=== PATIENT | female | born 1980 | race American Indian/Alaskan Native ===

== ENCOUNTER 2020-09-12 11:56 | Emergency (ER) | payer SELFPAY ==
--- NOTE | 2020-09-12 12:40 | Emergency Department Report ---
ED Lower Extremity HPI - General Chief Complaint: Extremity Injury, Lower Stated Complaint: KNEE/LEG PAIN Time Seen by Provider: 09/12/20 12:20 Source: patient Mode of arrival: Ambulatory Limitations: No Limitations - History of Present Illness Initial Comments: 40-year-old female with emerge department complaining of atraumatic right knee pain which has been off and on present worsening for the past 1 to 2months. States she is unable to get out able to get into her doctor as he is in the process of having a change reports no fever, chills, sweats reports no traumatic injury reports no numbness no tingling. Complaint: knee injury -: Gradual, month(s) Injury: Knee: Right Type of Injury: unknown Place: home Severity: mild, moderate Improves With: nothing Worsens With: nothing Associated Symptoms: able to partially bear weight - Related Data Previous Rx's Medication Instructions Recorded Last Taken Type Cyclobenzaprine [Flexeril] 10 mg PO TID PRN #20 tablet 07/23/16 Unknown Rx Ibuprofen [Motrin 800 MG tab] 800 mg PO Q8HR PRN #30 tablet 07/23/16 Unknown Rx Ketorolac [Toradol] 10 mg PO Q6H PRN #14 tablet 09/12/20 Unknown Rx Allergies Allergy/AdvReac Type Severity Reaction Status Date / Time No Known Allergies Allergy Verified 07/23/16 19:29 ED Review of Systems ROS: Stated complaint: KNEE/LEG PAIN Other details as noted in HPI Comment: All other systems reviewed and negative ED Past Medical Hx - Past Medical History Previous Medical History?: Yes Hx Hypertension: Yes - Surgical History Past Surgical History?: Yes Additional Surgical History: D&C 2002 - Social History Smoking Status: Never Smoker Substance Use Type: None - Medications Home Medications: Home Medications Medication Instructions Recorded Confirmed Last Taken Type Cyclobenzaprine [Flexeril] 10 mg PO TID PRN #20 tablet 07/23/16 Unknown Rx Ibuprofen [Motrin 800 MG tab] 800 mg PO Q8HR PRN #30 tablet 07/23/16 Unknown Rx Ketorolac [Toradol] 10 mg PO Q6H PRN #14 tablet 09/12/20 Unknown Rx ED Physical Exam - General Limitations: No Limitations General appearance: alert, in no apparent distress - Head Head exam: Present: atraumatic, normocephalic - Eye Eye exam: Present: normal appearance, PERRL, EOMI Pupils: Present: normal accommodation - ENT ENT exam: Present: normal exam, mucous membranes moist - Neck Neck exam: Present: normal inspection, full ROM - Respiratory Respiratory exam: Present: normal lung sounds bilaterally. Absent: respiratory distress, wheezes, rales, chest wall tenderness, accessory muscle use - Cardiovascular Cardiovascular Exam: Present: regular rate, normal rhythm. Absent: systolic murmur, diastolic murmur, rubs, gallop - GI/Abdominal GI/Abdominal exam: Present: soft, normal bowel sounds - Extremities Exam Extremities exam: Present: normal inspection - Expanded Lower Extremity Exam Right Knee exam: Present: tenderness. Absent: swelling, abrasion, pain w/ pronation/supination, posterior draw sign, pain/laxity with valgus, pain/laxity with varus Lower Leg exam: Present: normal inspection. Absent: tenderness, swelling, abrasion, ecchymosis, deformity, crepidus, palpable cord, Ramos's sign Ankle exam: Present: normal inspection Foot/Toe exam: Present: normal inspection Neuro vascular tendon exam: Present: no vascular compromise - Back Exam Back exam: Present: normal inspection. Absent: CVA tenderness (R), CVA tenderness (L) - Neurological Exam Neurological exam: Present: alert, oriented X3 - Psychiatric Psychiatric exam: Present: normal affect, normal mood - Skin Skin exam: Present: warm, dry, intact, normal color. Absent: rash Critical care attestation.: If time is entered above; I have spent that time in minutes in the direct care of this critically ill patient, excluding procedure time. ED Disposition Disposition: TO HOME OR SELFCARE Is pt being admited?: No Does the pt Need Aspirin: No Condition: Stable Instructions: Acute Knee Pain, Adult, Chronic Knee Pain, Adult, [id number]-ni-[id number], How to Use Cold Therapy, Mdlr-pc-Autv, Joint Pain, Ffdf-zi-Pril Prescriptions: Ketorolac [Toradol] 10 mg PO Q6H PRN #14 tablet PRN Reason: Pain Referrals: MILIND AGARWAL MD [Staff Physician] - 3-5 Days
[2020-09-12 13:39] VITALS: BP 133/78
== END 2020-09-12 13:39 | disposition home or self-care (01) ==
LOC: ED 11:56
DX: M25.561 Pain in right knee (principal); M79.604 Pain in right leg; I10 Essential (primary) hypertension; Z79.899 Other long term (current) drug therapy; Z98.890 Other specified postprocedural states
CPT/HCPCS: 99282

== ENCOUNTER 2021-01-29 20:13 | Emergency (ER) | payer OTHER ==
[2021-01-29 20:45] VITALS: BP 131/76
--- NOTE | 2021-01-29 22:20 | XRay Report ---
RIGHT KNEE 4 VIEW(S) INDICATION / CLINICAL INFORMATION: Fall with knee injury and pain COMPARISON: None available. FINDINGS: BONES / JOINT(S): Probable tiny avulsion fracture involving medial tibial spine. Mild tricompartmenta l degenerative arthrosis with small joint effusion SOFT TISSUES: No significant abnormality. ADDITIONAL FINDINGS: None. Signer Name: William Rutledge MD Signed: 01/29/2021 10:15 PM Workstation Name: [id number]
[2021-01-30] MEDS ORDERED: ONDANSETRON 4 MG ODT TAB PO ONE (00:57)
[2021-01-30] MEDS ORDERED: HYDROcodone/ACETAMINOPHEN 7.5-325MG TAB PO ONE (00:57)
[2021-01-30] MEDS ORDERED: IBUPROFEN 600 MG TAB PO ONE (00:57)
--- NOTE | 2021-01-30 01:46 | Emergency Department Report ---
ED Fall HPI - General Chief Complaint: Extremity Injury, Lower Stated Complaint: FALL/RT KNEE PAIN Source: patient Mode of arrival: Wheelchair - History of Present Illness Initial Comments: Patient is a 40-year-old -[place] female with a history of hypertension and osteoarthritis who presents to the ED with complaint of acute onset persistent severe right knee pain after she slipped on a wet floor at work and fell down landing on the right knee about 6 hours ago. Patient states that she is unable to bear weight on the right knee because of worsening pain. Patient denies head or neck injuries, dizziness, nausea, vomiting, chest pain, shortness of breath, back pain, hip pain, ankle pain, loss of consciousness, change in vision, numbness and tingling or weakness of upper and lower extremities bilaterally or neck pain. MD Complaint: fall, other (right knee pain) -: Sudden, hour(s) (6) Fall From: standing When Fall Occurred: 4-6 hours [employer] Fall Witnessed: yes, by living facility s Place Fall Occurred: work Loss of Consciousness: none Prolonged Down Time?: no Symptoms Prior to Fall: none Location: other (right knee) Location - Extremities: Right: Knee (right knee pain) Severity: severe Severity scale (0 -10): 7 Quality: sharp, aching Context: tripped/slipped Associated Symptoms: denies. denies: headache, neck pain, numbness, weakness, chest paint, shortness of breath, abdominal pain, hematuria, unable to walk, lightheaded, vertigo, confusion, other - Related Data Previous Rx's Medication Instructions Recorded Last Taken Type Cyclobenzaprine [Flexeril] 10 mg PO TID PRN #20 tablet 07/23/16 Unknown Rx Ibuprofen [Motrin 800 MG tab] 800 mg PO Q8HR PRN #30 tablet 07/23/16 Unknown Rx Ketorolac [Toradol] 10 mg PO Q6H PRN #14 tablet 09/12/20 Unknown Rx HYDROcodone/APAP 5-325 [[place] 1 each PO Q6HR PRN #12 tablet 01/30/21 Unknown Rx 5/325] Ibuprofen [Motrin] 800 mg PO Q8HR PRN #30 tablet 01/30/21 Unknown Rx Allergies Allergy/AdvReac Type Severity Reaction Status Date / Time No Known Allergies Allergy Verified 07/23/16 19:29 ED Review of Systems ROS: Stated complaint: FALL/RT KNEE PAIN Other details as noted in HPI Constitutional: denies: chills, fever Eyes: denies: eye pain, eye discharge, vision change ENT: denies: ear pain, throat pain Respiratory: denies: cough, shortness of breath, wheezing Cardiovascular: denies: chest pain, palpitations Endocrine: no symptoms reported Gastrointestinal: denies: abdominal pain, nausea, diarrhea Genitourinary: denies: urgency, dysuria, discharge Musculoskeletal: joint swelling (right knee), arthralgia (right knee pain). denies: back pain Skin: denies: rash, lesions Neurological: denies: headache, weakness, paresthesias Psychiatric: denies: anxiety, depression Hematological/Lymphatic: denies: easy bleeding, easy bruising ED Past Medical Hx - Past Medical History Previous Medical History?: Yes Hx Hypertension: Yes - Surgical History Past Surgical History?: No Additional Surgical History: D&C 2002 - Social History Smoking Status: Never Smoker Substance Use Type: None - Medications Home Medications: Home Medications Medication Instructions Recorded Confirmed Last Taken Type Cyclobenzaprine [Flexeril] 10 mg PO TID PRN #20 tablet 07/23/16 Unknown Rx Ibuprofen [Motrin 800 MG tab] 800 mg PO Q8HR PRN #30 tablet 07/23/16 Unknown Rx Ketorolac [Toradol] 10 mg PO Q6H PRN #14 tablet 09/12/20 Unknown Rx HYDROcodone/APAP 5-325 [[place] 1 each PO Q6HR PRN #12 tablet 01/30/21 Unknown Rx 5/325] Ibuprofen [Motrin] 800 mg PO Q8HR PRN #30 tablet 01/30/21 Unknown Rx ED Physical Exam - General Limitations: Physical Limitation General appearance: alert, in no apparent distress - Head Head exam: Present: atraumatic, normocephalic, normal inspection - Eye Eye exam: Present: normal appearance, PERRL, EOMI Pupils: Present: normal accommodation - ENT ENT exam: Present: normal exam, normal orophraynx, mucous membranes moist, TM's normal bilaterally, normal external ear exam - Neck Neck exam: Present: normal inspection, full ROM - Respiratory Respiratory exam: Present: normal lung sounds bilaterally. Absent: respiratory distress, wheezes, rales, rhonchi, chest wall tenderness, accessory muscle use, decreased breath sounds, prolonged expiratory - Cardiovascular Cardiovascular Exam: Present: regular rate, normal rhythm, normal heart sounds. Absent: systolic murmur, diastolic murmur, rubs, gallop - GI/Abdominal GI/Abdominal exam: Present: soft, normal bowel sounds. Absent: tenderness, guarding, rebound, hyperactive bowel sounds, hypoactive bowel sounds, organomegaly - Extremities Exam Extremities exam: Present: normal inspection, tenderness (Palpable right knee tenderness with limited ROM due to pain), normal capillary refill, joint swelling (right knee swelling). Absent: full ROM (limited ROM due to pain), pedal edema, calf tenderness - Back Exam Back exam: Present: normal inspection, full ROM. Absent: tenderness, CVA tenderness (R), CVA tenderness (L), muscle spasm, paraspinal tenderness, vertebral tenderness - Neurological Exam Neurological exam: Present: alert, oriented X3, CN II-XII intact, normal gait, reflexes normal - Psychiatric Psychiatric exam: Present: normal affect, normal mood - Skin Skin exam: Present: warm, dry, intact, normal color. Absent: rash ED Course Vital Signs 01/29/21 20:42 Temperature 98.8 F Pulse Rate 72 Respiratory 20 Rate Blood Pressure 131/76 O2 Sat by Pulse 99 Oximetry ED Medical Decision Making - Radiology Data Radiology results: report reviewed, image reviewed [facility] [address] [place] [address] XRay Report Signed Patient: ALBERTO CASTILLO MR#: [id number] : 1980 Acct:[id number] Age/Sex: 40 / F ADM Date: 01/29/21 Loc: ED Attending Dr: Ordering Physician: LAVINIA AMARO Date of Service: 01/29/21 Procedure(s): XR knee 4+V RT Accession Number(s): [id number] cc: LAVINIA AMARO Fluoro Time In Minutes: RIGHT KNEE 4 VIEW(S) INDICATION / CLINICAL INFORMATION: Fall with knee injury and pain COMPARISON: None available. FINDINGS: BONES / JOINT(S): Probable tiny avulsion fracture involving medial tibial spine. Mild tricompartmental degenerative arthrosis with small joint effusion SOFT TISSUES: No significant abnormality. ADDITIONAL FINDINGS: None. Signer Name: William Rutledge MD Signed: 01/29/2021 10:15 PM Workstation Name: [id number] Transcribed By: TL Dictated By: William Rutledge MD Electronically Authenticated By: William Rutledge MD Signed Date/Time: 01/29/212214 DD/ 13 TD/TT: Print - Medical Decision Making This is a 40-year-old -[place] female with a history of hypertension and osteoarthritis who presents to the ED with complaint of acute onset persistent severe right knee pain after she slipped on a wet floor at work and fell down landing on the right knee about 6 hours ago. Patient states that she is unable to bear weight on the right knee because of worsening pain. In the ED, patient is alert and oriented x3 and is not in any distress but appears to be in significant pain. Patient was treated for pain in the ED and right knee x-ray showed probable tiny avulsion fracture involving medial tibial spine. Mild tricompartmental degenerative arthrosis with small joint effusion. The right knee was immobilized in a knee immobilizer, and the patient was given crutches for ambulation. On reevaluation, patient's pain is well controlled medication. Patient is advised to strictly observe nonweightbearing on the right leg because of the injury. Patient was therefore discharged home on pain medications and given referral to the orthopedic surgeon on-call Dr. Bunn for further evaluation. Patient advised to contact Dr. Bunn's office first thing in the morning on Saturday, January 30, 2021 to schedule a follow-up appointment for further evaluation. Patient was advised return to the ED immediately if symptoms get worse. - Differential Diagnosis Knee fracture; Knee contusion; Knee sprain; Muscle strain Critical care attestation.: If time is entered above; I have spent that time in minutes in the direct care of this critically ill patient, excluding procedure time. ED Disposition Clinical Impression: Avulsion injury of right knee region, Chronic osteoarthritis, Avulsion fracture of tuberosity of tibia Contusion of right knee Qualifiers: Encounter type: initial encounter Qualified Code(s): S80.01XA - Contusion of right knee, initial encounter Disposition: - TO HOME OR SELFCARE Is pt being admited?: No Does the pt Need Aspirin: No Condition: Stable Instructions: Cast or Splint Care, Adult, [id number], Contusion, Qjyc-we-Hbuf, Knee Sprain, Adult, Phqf-lb-Gafp, Arthritis, Dmej-sm-Tsng, Tibial Fracture, Adult, Vovc-wr-Wevo Additional Instructions: The right knee x-ray shows a probable avulsion fracture of the medial tibial spine. It also showed mild tricompartmental degenerative arthrosis with small joint effusion. Therefore observe nonweightbearing on the right knee, and follow-up with the orthopedic surgeon Dr. Bunn for further evaluation. Contact Dr. Bunn's office today Saturday, January 30, 2021 to schedule a follow-up appointment. Return to the ED immediately if symptoms get worse. Prescriptions: Ibuprofen [Motrin] 800 mg PO Q8HR PRN #30 tablet PRN Reason: Pain , Severe (7-10) HYDROcodone/APAP 5-325 [[place] 5/325] 1 each PO Q6HR PRN #12 tablet PRN Reason: Pain Referrals: MILIND BUNN MD [Staff Physician] - 3-5 Days Forms: Work/School Release Form(ED) Time of Disposition: 01:54 Print Language: [place]
== END 2021-01-30 02:30 | disposition home or self-care (01) ==
LOC: ED 20:13
DX: S82.151A Displaced fracture of right tibial tuberosity, initial encounter for closed fracture (principal); S83.194A Other dislocation of right knee, initial encounter; M17.11 Unilateral primary osteoarthritis, right knee; I10 Essential (primary) hypertension; Z79.899 Other long term (current) drug therapy; W01.0XXA Fall on same level from slipping, tripping and stumbling without subsequent striking against object, initial encounter; Y93.89 Activity, other specified; Y92.89 Other specified places as the place of occurrence of the external cause; Y99.8 Other external cause status
CPT/HCPCS: 99283; Q0162